=== PATIENT | female | born 1995 | race Caucasian/White ===

== ENCOUNTER 2016-09-15 19:09 | Emergency (ER) | payer OTHER ==
[~2016-09-15] VITALS: Ht 170.2 cm; Wt 67.8 kg
[2016-09-15 19:58] VITALS: TEMP 36.7; Ht 170.2 cm; Wt 67.8 kg
[2016-09-15] MEDS ORDERED: ONDANSETRON INJ 2 MG/ML 2 ML VIAL IV STA (21:39)
[2016-09-15 21:54] LABS: BASO % 0.3 %; BASO ABS # 0.03 K/uL (0-0.2); COMPLETE YES; HEMATOCRIT 41.5 % (37-47); IG% 0.3 %; LYMPH % 27.5 %; LYMPH ABS # 2.61 K/uL (1.2-3.4); MEAN CELL VOLUME 92.2 fL (80-100); MEAN CORPUSCULAR HEMOGLOBIN 31.8 pg (25-34); MEAN CORPUSCULAR HGB CONC 34.5 g/dl (32-36); MEAN PLATELET VOLUME 9.3 fL (7.4-10.4); MONO % 6.5 %; NEUT % 63.4 %; PLATELET COUNT 304 K/uL (130-400)
[2016-09-15] MEDS ORDERED: IUD'IUD PV (22:07)
[2016-09-15 22:20] LABS: ALT/SGPT 21 U/L (12-78); BLOOD UREA NITROGEN 7 mg/dl (7-18); BUN/CREATININE RATIO 10.3 (10-20); CALCIUM 8.4 mg/dl (8.5-10.1); CARBON DIOXIDE 29 mmol/L (21-32); CHLORIDE 104 mmol/L (98-107); CREATININE 0.68 mg/dl (0.60-1.20); GLUCOSE 93 mg/dl (70-99); POTASSIUM 3.3 mmol/L (3.5-5.1); SODIUM 141 mmol/L (136-145)
[2016-09-15 22:23] LABS: ALKALINE PHOSPHATASE 65 U/L (45-117); AST/SGOT 21 U/L (15-37)
[2016-09-15] MEDS ORDERED: OPTIRAY 320 IV PRN (23:00)
[2016-09-15] MEDS ORDERED: MoRPHine SULFATE 4 MG/ML 1 ML CARP\\VIAL IV STA (23:36)
[2016-09-16 01:08] VITALS: BP 113/76; PULSE 71; O2SAT 98
--- NOTE | 2016-09-16 01:36 | EMERGENCY ROOM VISIT NOTE ---
History Report prepared by Melody: Jasmin Conklin Under the Supervision of: Dr. Avery Day M.D. First contact with patient: 21:33 Chief Complaint: ABDOMINAL PAIN Stated Complaint: ABDOMINAL PAIN, NAUSEA- RE[facility]ERRED [facility] History of Present Illness The patient is a 20 year old female who presents to the Emergency Room with complaints of intermittent lower abdominal pain beginning 4 days prior to arrival. The patient rates her pain as a 5/10 in severity at the moment but she states that this morning it was a 9/10 in severity. She describes the pain as a sharp stabbing sensation. She states that the pain does not radiate around to her back. The patient is experiencing nausea and diarrhea. The patient was seen at [facility]. A pelvic exam was done, urine test was negative, and urine dip showed no sign of infection. The patient denies fevers, vomiting, abnormal vaginal discharge or vaginal bleeding, or bloody stools. She denies any family history of inflammatory bowel disease. 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 A total of 10 systems reviewed and were otherwise negative. Past Medical & Surgical Medical Problems: (1) The patient reports no known medical problems Social History Smoking Status: Never Smoker Smokeless Tobacco Use: No Marital Status: single Housing Status: lives with roommate Occupation Status: [employer] Current/Historical Medications Scheduled Iud's (Paragard Intrauterine Terrazzo Tile Maker), PV CONTINOUS Physical Exam Vital Signs Date Time Temp Pulse Resp B/P Pulse Ox O2 Delivery O2 Flow Rate FiO2 09/16/16 01:08 71 16 113/76 98 Room Air 09/15/16 23:16 71 16 124/80 98 Room Air 09/15/16 21:48 78 16 118/76 98 Room Air 09/15/16 19:58 36.7 76 18 121/89 99 Room Air Physical Exam Constitutional: Vital signs reviewed. Eyes: Pupils are equal round reactive to light. Conjunctiva are noninjected. ENT: Pharynx is clear without erythema or exudate. Mucous membranes are moist. Neck supple without meningeal signs. Respiratory: Clear to auscultation bilaterally. Breath sounds are equal bilaterally. Cardiovascular: Regular rate and rhythm. No rubs or gallops. GI: Soft, nondistended. Diffuse tenderness throughout abdominal pain with greatest pain in left lower quadrant. No guarding. Bowel sounds are present. Musculoskeletal: No peripheral edema. No lower extremity tenderness. Integumentary: No cyanosis. Neurological: The patient is awake and alert. No focal deficits. Psychiatric: Normal affect. Medical Decision & Procedures ER Provider Diagnostic Interpretation: CT of the abdomen and pelvis: Normal caliber appendix without secondary signs Intrauterine device appears within limits Ovaries appear within limits No bowel dilation or free air Abdominal solid organs and gallbladder appear within limits Laboratory Results 09/15/16 21:40 Red Blood Count 4.50, Mean Corpuscular Volume 92.2, Mean Corpuscular Hemoglobin 31.8, Mean Corpuscular Hemoglobin Concent 34.5, Mean Platelet Volume 9.3, Neutrophils (%) (Auto) 63.4, Lymphocytes (%) (Auto) 27.5, Monocytes (%) (Auto) 6.5, Eosinophils (%) (Auto) 2.0, Basophils (%) (Auto) 0.3, Neutrophils # (Auto) 6.02, Lymphocytes # (Auto) 2.61, Monocytes # (Auto) 0.62, Eosinophils # (Auto) 0.19, Basophils # (Auto) 0.03 09/15/16 21:40 Test 09/15/16 21:40 White Blood Count 9.50 K/uL (4.8-10.8) Red Blood Count 4.50 M/uL (4.2-5.4) Hemoglobin 14.3 g/dL (12.0-16.0) Hematocrit 41.5 % (37-47) Mean Corpuscular Volume 92.2 fL (80-100) Mean Corpuscular Hemoglobin 31.8 pg (25-34) Mean Corpuscular Hemoglobin Concent 34.5 g/dl (32-36) Platelet Count 304 K/uL (130-400) Mean Platelet Volume 9.3 fL (7.4-10.4) Neutrophils (%) (Auto) 63.4 % Lymphocytes (%) (Auto) 27.5 % Monocytes (%) (Auto) 6.5 % Eosinophils (%) (Auto) 2.0 % Basophils (%) (Auto) 0.3 % Neutrophils # (Auto) 6.02 K/uL (1.4-6.5) Lymphocytes # (Auto) 2.61 K/uL (1.2-3.4) Monocytes # (Auto) 0.62 K/uL (0.11-0.59) Eosinophils # (Auto) 0.19 K/uL (0-0.5) Basophils # (Auto) 0.03 K/uL (0-0.2) RDW Standard Deviation 41.8 fL (36.4-46.3) RDW Coefficient of Variation 12.3 % (11.5-14.5) Immature Granulocyte % (Auto) 0.3 % Immature Granulocyte # (Auto) 0.03 K/uL (0.00-0.02) Anion Gap 8.0 mmol/L (3-11) Est Creatinine Clear Calc Drug Dose 127.3 ml/min Estimated GFR () 144.9 Estimated GFR (Non- 125.0 BUN/Creatinine Ratio 10.3 (10-20) Calcium Level 8.4 mg/dl (8.5-10.1) Total Bilirubin 0.3 mg/dl (0.2-1) Direct Bilirubin < 0.1 mg/dl (0-0.2) Aspartate Amino Transf (AST/SGOT) 21 U/L (15-37) Alanine Aminotransferase (ALT/SGPT) 21 U/L (12-78) Alkaline Phosphatase 65 U/L (45-117) Total Protein 6.7 gm/dl (6.4-8.2) Albumin 3.5 gm/dl (3.4-5.0) Lipase 112 U/L (73-393) Laboratory results as reviewed by me. Medications Administered Medications (Trade) Dose Ordered Sig/Lynette Route Start Time Stop Time Status Last Admin Dose Admin Ondansetron HCl (Zofran Inj) 4 mg NOW STAT IV 09/15/16 21:39 09/15/16 21:41 DC 09/15/16 21:59 4 MG Morphine Sulfate (MoRPHine SULFATE INJ) 4 mg NOW STAT IV 09/15/16 23:36 09/15/16 23:37 DC 09/15/16 23:40 4 MG ED Course 2135: The patient was evaluated in room C9. A complete history and physical exam was performed. 2138: Zofran Inj 4 mg IV. 2334: Patient has worsening left lower quadrant abdominal pain. 2336: Morphine Sulfate Inj 4 mg IV. Medical Decision This is a 20-year-old female who presents with abdominal pain. Differential diagnosis includes colitis, diverticulitis, abscess, perforation, inflammatory bowel disease, irritable bowel syndrome, appendicitis. I did perform a limited focused review of portions of the patient's old chart on the electronic medical record. The patient has had no prior visits to this hospital. I did evaluate the patient as noted above. IV access was established. I did treat the patient with IV morphine and Zofran. I did order and review the patient's blood work as noted in the electronic medical record. She does not have an elevated white blood cell count. She does have mild hypokalemia which is consistent with her diarrhea. I did order a CT of the abdomen and pelvis. I did review the images myself as well as the radiology report as described above. There is no evidence of acute process in the abdomen and pelvis. I did reassess patient. She is feeling better. I did discuss the test results with her. I did recommend close follow up with [facility] as well as gastroenterology for further evaluation. She was discharged in good condition. Impression Primary Impression: Lower abdominal pain Additional Impressions: Diarrhea Hypokalemia Scribe Attestation The scribe's documentation has been prepared under my direct and personally reviewed by me in its entirety. I confirm that the note above accurately reflects all work, treatment, procedures, and medical decision making performed by me. Departure Information Referrals No Doctor, Assigned (PCP) Patient Instructions My [facility] Additional Instructions You have been examined and treated today on an emergency basis only. This is not a substitute for, or an effort to provide, complete comprehensive medical care. It is impossible to recognize and treat all injuries or illnesses in a single emergency department visit. It is therefore important that you follow up closely with [facility] and Dr. Chaney of gastroenterology. Call as soon as possible for an appointment. Return for worsening symptoms or if you develop fever, vomiting, rectal bleeding or any other concerning symptoms. Problem Qualifiers Additional Impressions: Diarrhea Diarrhea type: unspecified type Qualified Codes: R19.7 - Diarrhea, unspecified
--- NOTE | 2016-09-16 08:16 | DIAGNOSTIC IMAGING REPORT ---
ABDOMEN AND PELVIS CT WITH IV AND ORAL CONTRAST CT DOSE: 316.62 mGy.cm HISTORY: Lower abdominal pain. TECHNIQUE: Multiaxial CT images of the abdomen and pelvis were performed following the use of intravenous and oral contrast. COMPARISON STUDY: None. FINDINGS: The lung bases are clear. The liver, spleen, gallbladder, pancreas, kidneys, and adrenal glands are within normal limits. No bowel wall thickening or obstruction. The pelvic organs are unremarkable. No suspicious lytic or blastic osseous lesions. Normal caliber appendix. No periappendiceal inflammatory change. An intrauterine device appears to be in good position. IMPRESSION: 1. No bowel wall thickening or obstruction. 2. Normal appendix. Electronically signed by: Vickey Bundy M.D. 09/16/2016 8:15 AM Dictated Date/Time: 09/16/2016 8:11 AM
== END 2016-09-16 01:48 | disposition home or self-care (01) ==
LOC: C.EDB 19:11 → C.EDC 09-16 01:48
DX: R10.32 Left lower quadrant pain (principal); R19.7 Diarrhea, unspecified; E87.6 Hypokalemia